=== PATIENT | female | born 1975 | race Caucasian/White ===

== ENCOUNTER 2017-02-09 10:54 | Emergency (ER) | payer SELFPAY ==
[2017-02-09] MEDS ORDERED: LIDOCAINE 1% INJ-PF (10 MG/ML) 30 ML SDV INJ ONE (11:09)
[2017-02-09] MEDS ORDERED: DIPH/PERTUSS(ACELL)/TETANUS VAC/PF 0.5 ML SYR (>=10YO) IM ONE (11:09)
--- NOTE | 2017-02-09 11:15 | ER Document Report ---
HPI - HPI Patient complains to provider of: Cut left foot Onset: Just prior to arrival Onset/Duration: Sudden Quality of pain: Throbbing Severity: Moderate Pain Level: 3 Context: Patient states she stepped on a curtain staci cutting the arch of her left foot this morning. Patient unsure of last tetanus shot. Associated Symptoms: None Exacerbated by: Walking Relieved by: Denies Similar symptoms previously: No Recently seen / treated by doctor: No - ROS ROS below otherwise negative: Yes Systems Reviewed and Negative: Yes All other systems reviewed and negative - CONSTITUTIONAL Constitutional: DENIES: Fever - EENT EENT: DENIES: Congestion - NEURO Neurology: DENIES: Headache - CARDIOVASCULAR Cardiovascular: DENIES: Chest pain - RESPIRATORY Respiratory: DENIES: Trouble Breathing - GASTROINTESTINAL Gastrointestinal: DENIES: Abdominal Pain - URINARY Urinary: DENIES: Dysuria - REPRODUCTIVE Reproductive: DENIES: : - MUSCULOSKELETAL Musculoskeletal: REPORTS: Extremity pain - Left foot - DERM Skin Color: Normal Skin Problems: Laceration Past Medical History - General Information source: Patient - Social History Smoking Status: Never Smoker Frequency of alcohol use: Occasional Drug Abuse: None Lives with: Family Family History: Arthritis, CVA, DM, Hypertension, Malignancy, Thyroid Disfunction - Past Medical History Cardiac Medical History: Reports: Hx Pulmonary Embolism Neurological Medical History: Reports: Hx Migraine Past Surgical History: Reports: Hx Tubal Ligation - Immunizations Immunizations up to date: Yes Hx Diphtheria, Pertussis, Tetanus Vaccination: Yes Vertical Provider Document - CONSTITUTIONAL Agree With Documented VS: Yes Exam Limitations: No Limitations General Appearance: WD/WN, No Apparent Distress - INFECTION CONTROL TRAVEL OUTSIDE OF THE [place] IN LAST 30 DAYS: No - HEENT HEENT: Atraumatic, Normocephalic - RESPIRATORY Respiratory: Breath Sounds Normal, No Respiratory Distress O2 Sat by Pulse Oximetry: 96 - CARDIOVASCULAR Cardiovascular: Regular Rate, Regular Rhythm - MUSCULOSKELETAL/EXTREMETIES Musculoskeletal/Extremeties: MAEW - NEURO Level of Consciousness: Awake, Alert, Appropriate - DERM Integumentary: Warm, Dry, Laceration - 1-1/2 cm laceration to arch of left foot. Bleeding controlled Course - Vital Signs Vital signs: Temp Pulse Resp BP Pulse Ox 98.1 F 112 H 16 121/85 96 02/09/17 11:02 02/09/17 11:02 02/09/17 11:02 02/09/17 11:02 02/09/17 11:02 Procedures - Laceration/Wound Repair Left Foot Wound length (cm): 1.5 Wound's Depth, Shape: Superficial, Linear Laceration pre-procedure: Sterile PPE donned, Sterile drapes applied, Shur- Clens applied Anesthetic type: 1% Lidocaine Volume Anesthetic (mLs): 4 Wound explored: Clean Wound Repaired With: Sutures Suture Size/Type: 4:0, Nylon Number of Sutures: 4 Layer Closure?: No Post-procedure wound care: Sterile dressing applied Post-procedure NV exam normal: Yes Complications: No Notes: 02/09/17 12:12 Patient tolerated procedure well. Discharge - Discharge Clinical Impression: Laceration of left foot Qualifiers: Encounter type: initial encounter Qualified Code(s): S91.312A - Laceration without foreign body, left foot, initial encounter Condition: Good Disposition: HOME, SELF-CARE Instructions: Tetanus Immunization Given ([facility]), Prophylactic Antibiotic ([facility]), Laceration Care ([facility]), Antibiotic Ointment Protection ([facility]), Soap Cleansing ([facility] ), Oral Narcotic Medication ([facility]) Additional Instructions: Take all antibiotics as prescribed Keep wound clean and dry, change dressing 1-2 times daily Ibuprofen as needed for pain, [place] as needed Return to have your sutures removed in about 10 days or your primary care physician's office can do this as well Return earlier if you have any problems with the wound Prescriptions: Cephalexin [Cephalexin 500 MG Capsule] 1 cap PO QID #20 capsule Hydrocodone/Acetaminophen [[place] 5-325 mg Tablet] 1 tab PO PRN PRN #10 tablet PRN Reason:
[2017-02-09 12:27] VITALS: BP 108/66
== END 2017-02-09 12:27 | disposition home or self-care (01) ==
LOC: ER 10:54
PROC: 0HQNXZZ Repair Left Foot Skin, External Approach (ICD-10-PCS; principal; 2017-02-09)
DX: S91.312A Laceration without foreign body, left foot, initial encounter (principal); W22.09XA Striking against other stationary object, initial encounter; Z86.711 Personal history of pulmonary embolism; Z98.51 Tubal ligation status; Z23 Encounter for immunization
CPT/HCPCS: 99282; 90471; 90715; 12001; J3490

== ENCOUNTER 2018-08-19 08:29 | Day surgery (SDC) | payer OTHER ==
[2018-08-14 10:12] LABS: ABSOLUTE EOSINOPHILS # (AUTO) 0.2 10^3/uL (0.0-0.6); ABSOLUTE LYMPHOCYTES (AUTO) 2.3 10^3/uL (0.5-4.7); ABSOLUTE MONOCYTES (AUTO) 0.6 10^3/uL (0.1-1.4); ABSOLUTE NEUT (AUTO) 3.3 10^3/uL (1.7-8.2); BASOPHILS % (AUTO) 0.6 % (0-2); EOSINOPHILS % (AUTO) 2.7 % (0-6); HEMATOCRIT 41.1 % (36.0-47.0); HEMOGLOBIN 14.4 g/dL (12.0-15.5); MEAN CORPUSCULAR HEMOGLOBIN 31.1 pg (27.0-33.4); MEAN CORPUSCULAR VOLUME 89 fl (80-97); MONOCYTES % (AUTO) 9.2 % (3-13); PLATELET COUNT 357 10^3/uL (150-450); RED BLOOD COUNT 4.62 10^6/uL (3.72-5.28); RED CELL DISTRIBUTION WIDTH 13.3 % (11.5-14.0); SEGMENTED NEUTROPHILS % (AUTO) 51.5 % (42-78); TOTAL CELLS COUNTED % (AUTO) 100 %; WHITE BLOOD COUNT 6.4 10^3/uL (4.0-10.5)
[2018-08-14 10:17] LABS: APPEARANCE,URINE SLIGHTLY-CLOUDY; BILIRUBIN,URINE NEGATIVE (NEGATIVE); COLOR,URINE YELLOW; GLUCOSE, URINE NEGATIVE (NEGATIVE); KETONES,URINE NEGATIVE (NEGATIVE); LEUKOCYTE ESTERASE,URINE NEGATIVE (NEGATIVE); NITRITE,URINE NEGATIVE (NEGATIVE); PROTEIN,URINE NEGATIVE (NEGATIVE); URINE SPECIFIC GRAVITY 1.015; UROBILINOGEN,URINE NEGATIVE mg/dL (<2.0)
[2018-08-14 10:37] LABS: ALANINE AMINOTRANSFERASE 32 U/L (9-52); ALBUMIN 4.6 g/dL (3.5-5.0); ALKALINE PHOSPHATASE 58 U/L (38-126); ANION GAP 12 (5-19); ASPARTATE AMINO TRANSFERASE 32 U/L (14-36); BILIRUBIN,DIRECT 0.3 mg/dL (0.0-0.4); BILIRUBIN,TOTAL 0.6 mg/dL (0.2-1.3); BLOOD UREA NITROGEN 13 mg/dL (7-20); CALCIUM 9.6 mg/dL (8.4-10.2); CARBON DIOXIDE 24 mmol/L (22-30); CHLORIDE 103 mmol/L (98-107); GLUCOSE 82 mg/dL (75-110); POTASSIUM 4.3 mmol/L (3.6-5.0); SODIUM 138.7 mmol/L (137-145); TOTAL PROTEIN 8.3 g/dL (6.3-8.2)
[~2018-08-19 08:29] MED LIST: GENTAMICIN SULFATE 80 MG in DEXTROSE 5%-WATER 100 ML IV PRN; LACTATED RINGERS 1000 ML IV PRN; LIDOCAINE 0.5% INJ-PF (5 MG/ML) 50 ML SDV SUBCUT PRN
[2018-08-19] MEDS ORDERED: SUCCINYLCHOLINE CHLORIDE INJ 200 MG/10 ML VIAL ONE (09:40)
[2018-08-19] MEDS ORDERED: LIDOCAINE 1% INJ-PF (10 MG/ML) 30 ML SDV ONE (10:11)
[2018-08-19] MEDS ORDERED: FENTANYL CITRATE INJ/PF 100 MCG/2 ML AMPUL ONE ×2 (10:15→10:19)
[2018-08-19] MEDS ORDERED: MIDAZOLAM 2 MG/2 ML INJ ONE (10:15)
[2018-08-19] MEDS ORDERED: ONDANSETRON HCL INJ/PF 4 MG/2 ML SDV ONE (10:16)
[2018-08-19] MEDS ORDERED: DEXAMETHASONE SOD PHOSPHATE INJ 4 MG/1 ML VIAL ONE (10:16)
[2018-08-19] MEDS ORDERED: PROPOFOL INJ 200 MG/20 ML VIAL IV ONE (10:16)
[2018-08-19] MEDS ORDERED: MORPHINE SULFATE 10 MG/ML INJ IV PRN (10:45)
[2018-08-19] MEDS ORDERED: MEPERIDINE HCL/PF INJ 25 MG/1 ML DISP.SYRIN IV PRN (10:45)
[2018-08-19] MEDS ORDERED: DIPHENHYDRAMINE HCL 50 MG/ML VIAL IV PRN (10:45)
[2018-08-19] MEDS ORDERED: FENTANYL CITRATE INJ/PF 100 MCG/2 ML AMPUL IV PRN ×3 (10:45)
[2018-08-19] MEDS ORDERED: PROMETHAZINE HCL INJ 25 MG/1 ML VIAL IV PRN ×2 (10:45→11:45)
--- NOTE | 2018-08-19 11:34 | OPERATIVE REPORT E ---
Operative Report NAME: CHET ALEGRIA : 1975 AGE: 43Y DATE OF SURGERY: 08/19/2018 ROOM: PREOPERATIVE DIAGNOSIS: Menometrorrhagia, dysfunctional uterine bleeding. POSTOPERATIVE DIAGNOSIS: Menometrorrhagia, dysfunctional uterine bleeding. OPERATION: D and C, hysteroscopy, NovaSure. SURGEON: MIKE FENG M.D. ANESTHESIA: General. PERTINENT HISTORY AND OPERATIVE FINDINGS: This is a 43-year-old female who is presenting with a history of dysfunctional uterine bleeding for a D and C, hysteroscopy, and NovaSure. She is aware of the risks and benefits of this procedure. At the time of surgery the vulva, vagina, cervix, uterus, and adnexa were palpated and normal. OPERATIVE PROCEDURE: The patient was brought into the operating room, placed on the table in a supine position, inducted under general anesthesia. Following this she was repositioned in dorsal lithotomy position, prepped and draped in a sterile fashion. Bladder was drained of about 75 mL of clear yellow urine. Pelvic under anesthesia was done with essentially negative findings. A weighted speculum was placed in the vagina and the cervix was grasped on its anterior lip with a single-tooth tenaculum and an Allis. The cervix was then dilated to #8 Hegar dilator. The cervix measured 4 cm. The uterus sounded to 10 cm, giving a uterine cavity length of 6 cm. With this in mind the hysteroscope was introduced into the fundus of the uterus and saline was turned on. The contents of the uterus were inspected and visualized. Having accomplished this, a curettage was carried out with removal of what appeared to be a cervical polyp. Having accomplished this, the NovaSure was taken out of the package. It was purged and then gently manipulated through the cervical os to the fundus of the uterus. It was opened up and then going north, south, east, west, and rotating about 45 degrees in between it gave us a cavity width of 4.7 with a cavity length of 6. The *------* was pushed forward and placed into the external os of the cervix. Under direct pressure the NovaSure was empowered. It ran for 1 minute and 22 seconds with a power level of 155. The equipment was then removed after the machine self-terminated. The NovaSure was closed and withdrew from the endometrial cavity. Having accomplished this the hysteroscope was then reflushed with normal saline and inserted through the internal cervical os. The uterine cavity was inspected. There was a good burn. The excess saline was removed. This terminated the procedure. The tenaculum and Allis were removed from the cervix. There was no evidence of active bleeding. Prior to removing the hysteroscope for the last time all the excess saline was suctioned out. The patient tolerated the procedure well, negligible blood loss, and left the operating room in satisfactory condition. DICTATING PHYSICIAN: MIKE FENG M.D. [id number] PHY#: [id number] ID: [id number] JOB#: [id number] ACCT: [id number] cc:MIKE FENG M.D. >
[2018-08-19] MEDS ORDERED: OXYCODONE-ACETAMINOPHEN 5-325 MG TABLET PO PRN ×2 (11:43→11:44)
[2018-08-19] MEDS ORDERED: OXYCODONE-ACETAMINOPHEN 5-325 MG TABLET ONE (12:10)
[2018-08-19 13:27] VITALS: BP 104/69
== END 2018-08-19 13:34 | disposition home or self-care (01) ==
LOC: OROUT 08:29
PROVIDERS: ATTEND Obstetrics & Gynecology
DX: N92.1 Excessive and frequent menstruation with irregular cycle (principal); N84.0 Polyp of corpus uteri; N93.8 Other specified abnormal uterine and vaginal bleeding; E66.9 Obesity, unspecified; Z68.38 Body mass index [BMI] 38.0-38.9, adult; Z88.0 Allergy status to penicillin; Z88.2 Allergy status to sulfonamides; Z79.899 Other long term (current) drug therapy
CPT/HCPCS: 36415; 80053; 81001; 81025; 85025; 88305; 952; J0330; J1100; J1580; J2250; J2405; J2704; J3010; J3490